=== PATIENT | male | born 1995 | race Two or more races ===

== ENCOUNTER 2019-05-28 05:11 | Emergency (ER) | payer MEDICAID, OTHER ==
[~2019-05-28] VITALS: Ht 180.3 cm; Wt 59.9 kg
[2019-05-28 06:25] VITALS: BP 117/72
[2019-05-28] MEDS ORDERED: IBUPROFEN 800 MG TAB PO ONE (07:45)
== END 2019-05-28 08:11 | disposition home or self-care (01) ==
LOC: EDBD 05:11 → ER 05:17
DX: S16.1XXA Strain of muscle, fascia and tendon at neck level, initial encounter (principal); S46.912A Strain of unspecified muscle, fascia and tendon at shoulder and upper arm level, left arm, initial encounter; S29.012A Strain of muscle and tendon of back wall of thorax, initial encounter; V43.52XA Car driver injured in collision with other type car in traffic accident, initial encounter; Y93.89 Activity, other specified; Y92.89 Other specified places as the place of occurrence of the external cause; Y99.8 Other external cause status
CPT/HCPCS: 72125; 72128